=== PATIENT | female | born 1950 | race Caucasian/White ===

== ENCOUNTER → 2016-12-04 | Outpatient (CLI) | payer OTHER ==
--- NOTE | 2016-12-04 10:12 | MA ---
Bilateral Digital Diagnostic Mammograms December 04, 2016 Indication: Improving breast pain. Technique: Bilateral CC and MLO views. [facility]. Breast Density: Type B - 25-50%. Comparison: Diagnostic left mammogram dated July 2014, screening mammograms dated July 2014 , June 2012, June 2010, and August 2005. Findings: No malignant-type calcification, dominant mass, or architectural distortion. A benign obscu red asymmetry in the outer right breast is unchanged since at least 2004. Impression: Negative unchanged mammograms. BI-RADS 1: Negative mammogram. Recommendation: Clinical follow up for breast pain. Bilateral screening mammograms due in December 12 was otherwise clinically indicated. Comment: Patient was notified of the negative results and recommendations by the pipe line maintenance supervisor at time of study completion. [facility] will send a result letter to the patient. Negative mammography should not preclude additional workup of a clinically suspicious finding. The patient's information is entered into a reminder system with a target due date for her next mammo gram.
== END ==
LOC: BRMIMAGING 09:11
PROVIDERS: ATTEND Family Medicine
DX: N64.4 Mastodynia (principal)
CPT/HCPCS: G0204

== ENCOUNTER → 2018-01-12 | Outpatient (CLI) | payer OTHER | LOC: BRMIMAGING 14:57 | PROVIDERS: ATTEND Family Medicine | DX: Z12.31 Encounter for screening mammogram for malignant neoplasm of breast (principal) ==

== ENCOUNTER → 2018-02-09 | Outpatient (CLI) | payer OTHER | LOC: BRMIMAGING 14:57 | PROVIDERS: ATTEND Family Medicine | DX: Z13.820 Encounter for screening for osteoporosis (principal); M85.89 Other specified disorders of bone density and structure, multiple sites; Z78.0 Asymptomatic menopausal state ==